=== PATIENT | male | born 1940 | race Caucasian/White ===

== ENCOUNTER → 2016-08-09 | Outpatient (CLI) | payer MEDICARE, OTHER ==
--- NOTE | 2016-08-09 09:23 | RADRPT ---
PROCEDURE: XR pelvis/right hip. CLINICAL INDICATION: Hip pain TECHNIQUE: AP pelvis/AP and lateral right hip views performed COMPARISON: No prior studies are available for comparison. FINDINGS: There is severe right hip osteoarthrosis. There is moderate left hip osteoarthrosis. This is associ ated with joint space narrowing, subchondral sclerosis , subchondral cyst formation and osteophytosi s. There is normal mineralization. No fractures or osseous lesions are identified. The soft tissu es are unremarkable. IMPRESSION: Severe right hip osteoarthrosis. Moderate left hip osteoarthrosis RPTAT: HGDB .Juliocesar Armenta MD, Date Time Electronically viewed and signed by .Juliocesar Armenta MD, on 08/09/2016 09:22 .B/
--- NOTE | 2016-08-09 09:27 | RADRPT ---
PROCEDURE: XR bilateral knees. CLINICAL INDICATION: Knee pain TECHNIQUE: AP weightbearing, PA weightbearing, lateral weightbearing and sunrise views of each kne e are available for review. COMPARISON: None available FINDINGS: Right knee: There is moderate to severe osteoarthrosis involving the right medial tibial femoral compartment and mild to moderate osteoarthrosis involving the lateral tibial femoral compartment and the patellofem oral compartment .This is associated with joint space narrowing, subchondral sclerosis and osteophyt osis. Left knee: There is severe osteoarthrosis involving the left medial tibial femoral compartment and moderate ost eoarthrosis involving the lateral tibial femoral compartment and the patellofemoral compartment. Thi s is associated with joint space narrowing, subchondral sclerosis and osteophytosis. There are multi ple calcified loose bodies in the posterior left medial knee joint. There is otherwise normal mineralization, architecture and alignment. No fractures are identified. No osseous lesions are identified. The soft tissues are unremarkable. IMPRESSION: Moderate to severe osteoarthrosis involving the right medial tibial femoral compartment and mild to moderate osteoarthrosis involving the lateral tibial femoral compartment and the patellofemoral comp artment Severe osteoarthrosis involving the left medial tibial femoral compartment and moderate osteoarthros is involving the lateral tibial femoral compartment and the patellofemoral compartment. Multiple calcified loose bodies in the left posterior medial knee joint.. RPTAT: HGDB .Juliocesar Armenta MD, Date Time Electronically viewed and signed by .Juliocesar Armenta MD, on 08/09/2016 09:27 .B/
== END | disposition home or self-care (01) ==
LOC: HKI 08:42
PROVIDERS: ATTEND Orthopaedic Surgery
DX: M16.11 Unilateral primary osteoarthritis, right hip (principal); M25.551 Pain in right hip; M17.0 Bilateral primary osteoarthritis of knee; M25.562 Pain in left knee; M25.561 Pain in right knee
CPT/HCPCS: 20610; 73502; 73564; G0463; J1030

== ENCOUNTER → 2016-09-18 | Outpatient (CLI) | payer MEDICARE, OTHER ==
[~2016-09-18] MED LIST: AMLO-147 PO; ASPI325T32 PO; BUME1TAB18 PO; CALC-762 PO; CLON1PAT2 TD; DOXA8TAB65 PO; PROLIA; RAPATHA
== END | disposition home or self-care (01) ==
LOC: HKI 09:37
PROVIDERS: ATTEND Orthopaedic Surgery
DX: Z01.818 Encounter for other preprocedural examination (principal); M16.11 Unilateral primary osteoarthritis, right hip
CPT/HCPCS: G0463

== ENCOUNTER 2016-09-24 05:36 | Inpatient (IN) | payer MEDICARE, OTHER ==
[2016-09-18 12:28] VITALS: BMI 27.3
[2016-09-23 10:00] VITALS: BMI 27.3
[2016-09-24] VITALS (22 sets, daily range): BP systolic 149–169; BP diastolic 61–83; PULSE 64–72; RESP 9–19; Ht 177.8 cm; Wt 84.4 kg
[~2016-09-24] VITALS: Ht 177.8 cm; Wt 84.4 kg
[2016-09-24] MEDS ORDERED: CALC-762 PO (05:57)
[2016-09-24] MEDS ORDERED: ASPI325T32 PO (05:57)
[2016-09-24] MEDS ORDERED: AMLO-147 PO (05:57)
[2016-09-24] MEDS ORDERED: DOXA8TAB65 PO (05:57)
[2016-09-24] MEDS ORDERED: BUME1TAB18 PO (05:57)
[2016-09-24] MEDS ORDERED: CLON1PAT2 TD (05:57)
[2016-09-24] MEDS ORDERED: SODIUM CL BACTERIOSTATIC 30 ML INJ ONE (06:54)
[2016-09-24] MEDS ORDERED: VANCOMYCIN 1 GM INJ ONE (06:54)
[2016-09-24] MEDS ORDERED: POLYMYXIN B 500000 UNIT INJ ONE (06:54)
[2016-09-24] MEDS ORDERED: BACITRACIN 50000 UNITS INJ ONE (06:56)
[2016-09-24] MEDS ORDERED: PAIN COCKTAIL-CEFUROXIME IRR ONE ×7 (07:00)
[2016-09-24] MEDS ORDERED: PREGABALIN 300 MG PO X1 PO ONE (07:00)
[2016-09-24] MEDS ORDERED: CEFAZOLIN 2GM/50 ML (PMX) 50 ML X1 BEFORE INCISION IVPB ONE (07:00)
[2016-09-24] MEDS ORDERED: TRANEXAMIC ACID 860 MG in SOD CHLORIDE 0.9% 91.4 ML IV ONE (07:00)
[2016-09-24] MEDS ORDERED: oxyCODONE (CR) 10 MG TAB [oxyCONTIN] X1 DOSE PO ONE (07:00)
[2016-09-24] MEDS ORDERED: LACTATED RINGER'S 1,000 ML IV SCH (07:00)
[2016-09-24] MEDS ORDERED: BUPIVACAINE LIPOSOME/PF 266 MG/20 ML VIAL INFIL ONE (07:00)
[2016-09-24] MEDS ORDERED: LIDOCAINE 2% (SDV) 5 ML INJ ONE (07:00)
[2016-09-24] MEDS ORDERED: TRANEXAMIC ACID 860 MG in SOD CHLORIDE 0.9% 100 ML IVPB ONE (07:00)
[2016-09-24] MEDS ORDERED: traMADOL 50 MG TAB X 1 DOSE PO ONE (07:00)
[2016-09-24] MEDS ORDERED: CELECOXIB 400 MG PO X1 DOSE PO ONE (07:00)
[2016-09-24] MEDS ORDERED: CEFAZOLIN 1 GM INJ ONE ×2 (07:13→07:14)
[2016-09-24] MEDS ORDERED: MIDAZOLAM 1 MG/ML 2 ML INJ ONE (07:13)
[2016-09-24] MEDS ORDERED: DEXAMETHASONE 4 MG/ML 1 ML INJ ONE (07:13)
[2016-09-24] MEDS ORDERED: FENTAnyl 50 MCG/ML VIAL ONE (07:13)
[2016-09-24] MEDS ORDERED: GLYCOPYRROLATE 0.4 MG INJ ONE (07:13)
[2016-09-24] MEDS ORDERED: NEOSTIGMINE 3 MG/3 ML SYRINGE ONE (07:13)
[2016-09-24] MEDS ORDERED: PROPOFOL 0 ML ONE (07:13)
[2016-09-24] MEDS ORDERED: ONDANSETRON 4 MG INJ ONE (07:13)
[2016-09-24] MEDS ORDERED: ROCURONIUM 50 MG INJ ONE (07:13)
--- NOTE | 2016-09-24 07:13 | HPN ---
Date/Time of Note Date/Time of Note DATE: 09/24/16 TIME: 07:13 Interval H&P Admission Note Pt. seen H&P reviewed: No system changes No change from H&P on 09/10/16 by JUNG Navarrete MD Sep 24, 2016 07:13
[2016-09-24] MEDS ORDERED: PROPOFOL 100 ML ONE (07:14)
[2016-09-24] MEDS ORDERED: PROLIA (07:17)
[2016-09-24] MEDS ORDERED: RAPATHA (07:17)
[2016-09-24] MEDS ORDERED: MIDAZOLAM 1 MG/ML 2 ML INJ IV PRN (08:30)
[2016-09-24] MEDS ORDERED: HYDROmorphONE (0.2 MG/ML) 10ML SYG IV PRN ×3 (08:30)
[2016-09-24] MEDS ORDERED: LABETALOL HCL 20MG INJ IV PRN (08:30)
[2016-09-24] MEDS ORDERED: ONDANSETRON 4 MG INJ IV PRN ×2 (08:30→10:00)
[2016-09-24] MEDS ORDERED: MEPERIDINE 25 MG INJ IV PRN (08:30)
[2016-09-24] MEDS ORDERED: FENTAnyl 50 MCG/ML VIAL IV PRN ×3 (08:30)
[2016-09-24] MEDS ORDERED: DIPHENHYDRAMINE 50 MG INJ IV PRN (08:30)
[2016-09-24] MEDS ORDERED: hydrALAzine 20 MG INJ IV PRN (08:30)
[2016-09-24] MEDS ORDERED: TRIMETHOBENZAMIDE 100 MG/ML VIAL IM PRN (08:30)
[2016-09-24] MEDS ORDERED: EPHEDrine SULFATE 50 MG/5 ML SYG IV PRN (08:30)
--- NOTE | 2016-09-24 09:55 | OPR ---
Date/Time of Note Date/Time of Note DATE: 09/24/16 TIME: 09:49 Operative Report Free Text/Dictation Dictation [id number] Procedure Date: Sep 24, 2016 Preoperative Diagnosis Right Hip OA Postoperative Diagnosis Same Operation Performed Right Anterior SARATH Surgeon: JUNG CLAYTON MD research assistant: OBI BUTT PA-C Anesthesia: spinal Anesthesiologist: You Navarro M.D. Estimated Blood Loss: 250 - 300 ml's Specimens Femoral Head Tubes/Drains Hemovac x1 Complications: None Pt Condition Post Procedure: stable Disposition: PACU JUNG CLAYTON MD Sep 24, 2016 09:54
--- NOTE | 2016-09-24 09:56 | PN ---
Date/Time of Note Date/Time of Note DATE: 09/24/16 TIME: 09:54 Assessment/Plan Lines/Catheters IV Catheter Type (from Nrsg): Peripheral IV Assessment/Plan Assessment/Plan Stable in PACU, s/p right anterior SARATH -continue abx until drains removed -pain meds as needed -ASA/SCDs for DVT prophylaxis -OOB with PT -monitor drain -check AM labs -d/c gregory in AM XR of the right hip is pending at this time Subjective 24 Hr Interval Summary Stable in PACU. Drowsy from anesthesia. Denies any pain. Moving all extremities. Exam/Review of Systems Vital Signs Vitals Vital Signs Date Time Temp Pulse Resp B/P Pulse Ox O2 Delivery O2 Flow Rate FiO2 09/24/16 09:50 98.8 09/24/16 07:49 65 16 161/83 97 Exam Free Text/Dictation Hemovac: minimal Dressing dry Incision clean, dry, and intact without redness or drainage 5/5 Quadriceps, Tibialis Anterior, EHL, Gastroc, Soleus, Peroneals Normal sensation Palpable DT/PT, CR <2 sec No distal edema[ OBI BUTT PA-C Sep 24, 2016 09:56
[2016-09-24] MEDS ORDERED: BISACODYL 10 MG SUPP PR PRN (10:00)
[2016-09-24] MEDS ORDERED: DIPHENHYDRAMINE 25 MG CAP PO PRN (10:00)
[2016-09-24] MEDS ORDERED: NA PHOSPHATE/BIPHOS 133 ML ENEMA PR PRN (10:00)
[2016-09-24] MEDS ORDERED: HYDROmorphONE 1 MG/ML SYG IV PRN (10:00)
[2016-09-24] MEDS ORDERED: ASPIRIN (EC) 325 MG TAB PO ONE (10:00)
[2016-09-24] MEDS ORDERED: oxyCODONE 5 MG TAB PO PRN ×2 (10:00)
[2016-09-24] MEDS ORDERED: NACL 0.9% 3 ML SYG IV SCH (10:00)
[2016-09-24] MEDS ORDERED: MAGNESIUM HYDROXIDE 30ML CUP PO PRN (10:00)
[2016-09-24 10:18] LABS: HEMOGLOBIN 11.5 g/dl (14.0-18.0)
[2016-09-24 10:27] LABS: CALCIUM 8.1 mg/dl (8.4-10.2); CREATININE 1.74 mg/dl (0.61-1.24)
[2016-09-24] MEDS: CEFAZOLIN 2 GM/50 ML (PMX) 50 ML IVPB SCH ×2 (11:00→18:01)
[2016-09-24] MEDS ORDERED: EXPAREL NOTE (BUPIVICAINE LIPOSOMAL) XX SCH (11:00)
--- NOTE | 2016-09-24 11:15 | OPR ---
DATE OF OPERATION: 09/24/2016 PREOPERATIVE DIAGNOSIS: Right hip osteoarthritis. POSTOPERATIVE DIAGNOSIS: Right hip osteoarthritis. OPERATION PERFORMED: Right anterior total hip arthroplasty. SURGEON: Jung Mendoza MD POLYTECHNIC REGISTRAR: Anjel VERGARA COMPONENTS USED: DePuy size 56 mm Gription [place] cup, 56/36 neutral Altrex polyethylene liner, size 8 standard Actis stem, 36+5 ceramic head. ANESTHESIA: Spinal plus general endotracheal intubation plus periarticular injection. ANESTHESIOLOGIST: You Navarro MD ESTIMATED BLOOD LOSS: 300 mL IV FLUIDS: 2200 mL crystalloid. SPECIMENS: Femoral head. DRAINS: Hemovac x1. COMPLICATIONS: None. DISPOSITION: The patient tolerated the procedure well and was taken to the recovery room in stable. INDICATIONS: The patient is a 76-year-old gentleman who has had progressive worsening pain in the right hip with radiographic evidence of severe osteoarthritis. He has failed nonsurgical means of treatment to control his pain including activity modifications, pain medications and ambulatory assist devices. Despite these measures, he has had worsening pain and I felt he would benefit from a total hip arthroplasty through an anterior approach. The risks, benefits, and alternatives of the procedure were explained in detail to the patient. I explained the risks of the surgery to include, but not be limited to: bleeding and possible need for blood transfusion; infection; pain; stiffness; neurovascular injury with possible numbness, weakness, and/or paralysis anywhere from the hip down to the toes; fracture; instability; dislocation; leg length inequality; wear and/or loosening of the prosthesis and possible need for future revision; blood clots; pulmonary embolism; and anesthetic complications such as heart attack, stroke, GI bleed, pneumonia, and/ or . Ample time was allowed for the patient to ask questions, all of which were addressed and answered. The patient understood the risks involved and wished to proceed. Informed consent was signed prior to the procedure. PROCEDURE: The patient's right hip was initialed with a marking pen in the preoperative area to identify the correct operative site. The patient was brought to the operating room and transferred from the the orthopedic specialty hospital to the [facility] where a spinal anesthetic was administered. The patient was then anesthetized and intubated. A Buckner catheter was placed. Both feet were placed into well padded boots which were then placed into the leg holders of the traction booms. A timeout was performed to confirm that the right side was the correct operative site. The patient was given 2 g of intravenous Ancef within one hour prior to the procedure. The operative hip was prepped and draped in the usual sterile fashion. A 10 cm oblique incision was made over the anterior aspect of the hip and carried down through subcutaneous tissue and fat with sharp dissection. The tensor fascia megan was incised along the length of the wound. The tensor fascia muscle was retracted laterally and the sartorius medially. The anterior circumflex vessels were identified and tied off with 2-0 silk suture and coagulated with the Tissue Link triage nurse. The rectus femoris was elevated off the anterior capsule and an anterior capsulectomy performed. A femoral neck osteotomy was made and the head removed from the acetabulum. The acetabulum was denuded of cartilage circumferentially, as was the femoral head. Retractors were placed around the acetabulum. The remnants of the labrum and ligamentum teres were excised. I reamed the acetabulum to the medial wall and then went into an anatomic position and increased the reamer size in 2 mm increments until I got a good bite and was down to bleeding subchondral bone. The [place] cup was opened and impacted into the acetabulum and sat flush circumferentially, getting a good bite. C-arm imaging showed it had about 40 to 45 degrees of abduction and 20 degrees of anteversion. The real liner was opened and impacted into the acetabulum and sat flush circumferentially. Attention was turned towards the femur. The operative leg was carefully lowered to the floor with the leg adducted. The foot was then externally rotated to approximately 110 degrees. A posteromedial release was performed to optimize exposure. The femoral hook was placed underneath the proximal femur and the hydraulic lift was then used to elevate the femur up out of the wound. The cookAegis cutter osteotome was used to remove the remaining overhanging greater trochanter. The femur was then broached, going up in one size increments until it sat flush with the neck cut and a stable fit was achieved. The trial neck and head were assembled and reduced into the acetabulum. Fluoroscopic imaging showed the components to be in good position and the leg lengths and offsets to be equal. At this point, the trial was dislocated and the trial broach removed. The canal was irrigated and dried. The real stem was opened and impacted into the femur. The trunnion was irrigated and dried, and the real femoral head was impacted onto the trunnion, and reduced into the acetabulum. The soft tissues were infiltrated with a mixture of 150 mg of 0.5% Bupivacaine, 8 mg of Duramorph, 300 mcg of epinephrine, 30 mg of Toradol, 100 mcg of clonidine, 750 mg of cefuroxime and 86 mL of normal saline, followed by an injection of 266 mg of liposomal Bupivacaine. At this point the hip was irrigated with a mixture of Betadine/saline and then antibiotic saline with pulsatile lavage. A Hemovac drain was placed in the deep portion of the wound and brought out the anterolateral thigh. There was good hemostasis. The tensor fascia megan was repaired with a running #1 Vicryl. The deep fat layer was irrigated and closed with 2-0 Stratafix and the subcutaneous layer closed with 3 -0 Vicryl and the skin was closed with audelia and then sealed with Dermabond. The drain was secured with 3-0 nylon. The sponge and needle counts were correct at the end of the case. The wound was covered with an occlusive dressing. The patient was awakened, extubated, and taken to the recovery room in stable condition. Dictated By: JUNG BULLOCK/WALTER Conf#: [id number] DID#: [id number] MTDD
[2016-09-24] MEDS: traMADol 50 MG TAB PO SCH ×2 (11:49→18:01)
[2016-09-24] MEDS: ACETAMINOPHEN 1000MG/100ML IV 100 ML IVPB SCH ×3 (11:54→23:47)
[2016-09-24] MEDS: LACTATED RINGER'S 1,000 ML IV SCH ×3 (11:54→22:24)
--- NOTE | 2016-09-24 12:27 | RADRPT ---
PROCEDURE: XR Hip. CLINICAL INDICATION: Post op in PACU TECHNIQUE: AP and frog lateral views of the right hip were performed. COMPARISON: AP pelvis 08/09/2016. FINDINGS: There are skin audelia over the lateral aspect of the right hip with subcutaneous emphysema present for recent total right hip arthroplasty. The femoral and acetabular components are anatomically ali gned with the drainage catheter identified lateral to the acetabular component of the right hip pros thesis. IMPRESSION: 1. Status post total right hip arthroplasty with a drainage catheter and subcutaneous emphysema not ed in the area related to recent surgery. The components are anatomically aligned with no evidence of loosening. RPTAT:AAJJ Physician Tavon Date Time Electronically viewed and signed by Physician Tavon on 09/24/2016 12:27 NATHAN/
--- NOTE | 2016-09-24 12:29 | RADRPT ---
PROCEDURE: AP postop view of the pelvis. CLINICAL INDICATION: Status post right hip arthroplasty. TECHNIQUE: An AP view of the pelvis was performed. COMPARISON: AP pelvis 08/09/2016. FINDINGS: A right hip arthroplasty was performed. The components are anatomically aligned with no evidence of loosening. There is a drainage catheter projecting over the proximal right hip with subcutaneous i n the same and skin audelia present from recent surgery. There is a drainage catheter in the urethr a and urinary bladder. The left femur is intact. The innominate bone is intact. There is mild narr owing and degenerative change involving the left acetabulum. IMPRESSION: 1. Status post total right hip arthroplasty with subcutaneous emphysema no drainage catheter noted in place related to recent surgery. 2. Early osteoarthritis of the left hip. RPTAT:AAJJ Physician Tavon Date Time Electronically viewed and signed by Physician Tavon on 09/24/2016 12:29 NATHAN/
--- NOTE | 2016-09-24 12:57 | RADRPT ---
PROCEDURE: Intraoperative imaging of the right hip with fluoroscopy. CLINICAL INDICATION: Right hip pain. Intraoperative. TECHNIQUE: 18 images of the right hip were obtained in the operating room with an image intensifie r. No radiologist was in attendance. 0.6 of fluoroscopy time was used. COMPARISON: No prior study is available for comparison. FINDINGS: Images demonstrate placement of a total right hip arthroplasty. IMPRESSION: 1. Satisfactory intraoperative imaging of the right hip. RPTAT: QQ .Jaron Pina MD, MD Date Time Electronically viewed and signed by .Jaron Pina MD, MD on 09/24/2016 12:57 .R/
[2016-09-24] MEDS ORDERED: TRANEXAMIC ACID 840 MG in SOD CHLORIDE 0.9% 100 ML IVPB ONE ×2 (13:00→16:00)
--- NOTE | 2016-09-24 13:40 | CONS ---
DATE OF ADMISSION: 09/24/2016 DATE OF CONSULTATION: 09/24/2016 TYPE OF CONSULTATION: Postop Medical Thank you very much for allowing me to evaluate the above patient, a 76-year-old male, who just unde rwent right hip replacement. HISTORICAL EVENTS: As you well know, this patient has had progressive disabling pain involving his right hip, and elected to proceed with surgery today. On the orthopedic floor, he is comfortable wi thout cough, wheezing, shortness of breath, abdominal pain, has mild nausea without vomiting. Buckner catheter is in place and family is at the bedside. PAST MEDICAL HISTORY: Includes: 1. Benign prostatic hypertrophy without obstruction. 2. History of carcinoma in situ of the bladder. 3. History of carcinoma in situ of the prostate. 4. Known coronary artery disease status post CABG, as well as stent placement. 5. History of osteoporosis. 6. Hypertension. 7. History of perforated gallbladder, requiring prolonged hospitalization, renal failure, the need for dialysis related to sepsis. 8. Hyperlipidemia. PRESENT MEDICATIONS: 1. B complex 1 per day. 2. Bumetanide 2 mg per day. 3. Cardura 8 mg per day. 4. Catapres TTS 0.2. 5. Glucosamine. 6. Ecotrin. 7. Folic acid 1 mg per day. 8. Norvasc. 9. Prolia. 10. Repatha. ALLERGIES: TO BE REVIEWED. FAMILY HISTORY: Not reviewed. PHYSICAL EXAMINATION: GENERAL: [place] male in no acute distress. VITAL SIGNS: Blood pressure 122/80, pulse 70, respirations are 20. He was afebrile. EYES: Extraocular muscles were full. NOSE, MOUTH, AND THROAT: Normal. NECK: Supple. There was no jugular venous distention, thyroid enlargement or adenopathy. Carotids 2+. LUNGS: Clear. HEART: Rhythm regular, no murmur. No third or fourth sound. ABDOMEN: Nontender. Liver and spleen were not palpable. No masses or tenderness were noted. EXTREMITIES: No edema. Calves nontender. NEUROLOGIC: No lateralizing motor weakness. IMPRESSION: 1. Status post right hip replacement. 2. History of hypertension. We will continue blood pressure meds and monitor blood pressure throug hout. 3. Known coronary artery disease, asymptomatic, but will be alert to signs and symptoms of coronary insufficiency. 4. We will evaluate daily for signs and symptoms of thromboembolic disease. Dictated By: LINA DAUGHERTY MD MR/NTS Conf#: [id number] DID#: [id number] CC: JUNG CLAYTON MD;*EndCC*
[2016-09-24] MEDS ORDERED: CLONIDINE 0.1 MG/24 HR PATCH TRANSDERM SCH (14:00)
[2016-09-24 14:47] LABS: ADD UMIC YES; URINE BILIRUBIN (Dip) NEGATIVE (NEGATIVE); URINE BLOOD (Dip) TRACE (NEGATIVE); URINE COLOR LT. YELLOW (YELLOW); URINE GLUCOSE (Dip) NEGATIVE (NEGATIVE); URINE KETONES (Dip) NEGATIVE (NEGATIVE); URINE LEUKOCYTE ESTERASE (Dip) NEGATIVE (NEGATIVE); URINE NITRITE (Dip) NEGATIVE (NEGATIVE); URINE TOTAL PROTEIN (Dip) TRACE (NEGATIVE); URINE UROBILINOGEN (Dip) 0.2 E.U./dL (0.1-1.0)
[2016-09-24 15:39] LABS: URINE RBCS 0-2 /HPF (0)
[2016-09-24] MEDS: PANTOPRAZOLE (EC) 40 MG TAB PO SCH (18:01)
[2016-09-24] MEDS ORDERED: ONDANSETRON 4 MG INJ IV STA (18:27)
[2016-09-24] MEDS: DOXAZOSIN 4 MG TAB PO SCH (21:05)
[2016-09-24] MEDS: DOCUSATE SODIUM 100 MG CAP PO SCH (21:05)
[2016-09-24] MEDS: PREGABALIN 50 MG CAP PO SCH (21:05)
[2016-09-25] VITALS: BP 168/77; RESP 18
[2016-09-25] MEDS: CEFAZOLIN 2 GM/50 ML (PMX) 50 ML IVPB SCH (01:28)
[2016-09-25 04:00] VITALS: BP 172/76; RESP 18
[2016-09-25] MEDS: AMLODIPINE 10 MG TAB PO SCH (04:52)
[2016-09-25 05:31] LABS: HEMATOCRIT 36.1 % (42.0-52.0); HEMOGLOBIN 11.2 g/dl (14.0-18.0)
[2016-09-25 05:36] LABS: POTASSIUM 4.3 mmol/L (3.5-5.1)
[2016-09-25 05:38] LABS: CREATININE 1.54 mg/dl (0.61-1.24)
[2016-09-25 05:39] LABS: CALCIUM 7.7 mg/dl (8.4-10.2)
[2016-09-25] MEDS: PANTOPRAZOLE (EC) 40 MG TAB PO SCH ×2 (05:57→18:09)
[2016-09-25] MEDS: traMADol 50 MG TAB PO SCH ×5 (05:58→23:38)
[2016-09-25] MEDS: ACETAMINOPHEN 1000MG/100ML IV 100 ML IVPB SCH (05:58)
[2016-09-25 06:35] VITALS: BP 151/72; RESP 18
[2016-09-25 07:00] VITALS: BP 143/67; RESP 20
[2016-09-25] MEDS: LACTATED RINGER'S 1,000 ML IV SCH ×2 (07:04→16:05)
[2016-09-25 07:25] LABS: ADD UMIC YES; URINE BILIRUBIN (Dip) NEGATIVE (NEGATIVE); URINE BLOOD (Dip) TRACE (NEGATIVE); URINE COLOR LT. YELLOW (YELLOW); URINE GLUCOSE (Dip) NEGATIVE (NEGATIVE); URINE KETONES (Dip) NEGATIVE (NEGATIVE); URINE LEUKOCYTE ESTERASE (Dip) NEGATIVE (NEGATIVE); URINE NITRITE (Dip) NEGATIVE (NEGATIVE); URINE TOTAL PROTEIN (Dip) NEGATIVE (NEGATIVE); URINE UROBILINOGEN (Dip) 0.2 E.U./dL (0.1-1.0)
[2016-09-25 07:42] LABS: BACTERIA,URINE RARE; URINE RBCS 0-2 /HPF (0)
--- NOTE | 2016-09-25 08:42 | PN ---
Date/Time of Note Date/Time of Note DATE: 09/25/16 TIME: 08:41 Assessment/Plan Lines/Catheters IV Catheter Type (from Nrsg): Peripheral IV Buckner in Place (from Nrsg): No Assessment/Plan Assessment/Plan Stable POD #1, s/p right anterior SARATH -d/c abx -pain meds as needed -ASA/SCDs for DVT prophylaxis -OOB with PT -check AM labs -drain removed -d/c planning. Will plan to go home upon discharge. Subjective 24 Hr Interval Summary No acute overnight events. Denies any pain. Did not start PT yet. VSS, afebrile. Would like to go home upon discharge. Exam/Review of Systems Vital Signs Vitals Vital Signs Date Time Temp Pulse Resp B/P Pulse Ox O2 Delivery O2 Flow Rate FiO2 09/25/16 07:00 97.4 65 20 143/67 96 09/24/16 14:00 Nasal Cannula 2.0 Intake and Output 09/24/16 09/24/16 09/25/16 15:00 23:00 07:00 Intake Total 2617.0 ml 1648.4 ml 1575 ml Output Total 500 ml 290 ml 1650 ml Balance 2117.0 ml 1358.4 ml -75 ml Exam Free Text/Dictation Hemovac: 40cc Dressing dry Incision clean, dry, and intact without redness or drainage 5/5 Quadriceps, Tibialis Anterior, EHL, Gastroc, Soleus, Peroneals Normal sensation Palpable DT/PT, CR <2 sec No distal edema Results Result Diagram: 09/25/16 0425 09/25/16 0425 OBI BUTT PA-C Sep 25, 2016 08:42
[2016-09-25] MEDS: PREGABALIN 50 MG CAP PO SCH ×2 (08:53→20:09)
[2016-09-25] MEDS: DOCUSATE SODIUM 100 MG CAP PO SCH ×2 (08:53→20:10)
[2016-09-25] MEDS: ASPIRIN (EC) 325 MG TAB PO SCH ×2 (08:53→20:09)
--- NOTE | 2016-09-25 11:26 | CONS ---
Date/Time of Note Date/Time of Note DATE: 09/25/16 TIME: 11:21 Assessment/Plan Assessment/Plan Chief Complaint/Hosp Course 1. he is 1 day post op a R SARATH , he is doing well 2. continue current medication and PT . 3. CKD , renal function is stable . 4. CAD , asymptomatic Problems: Consultation Date/Type/Reason Admit Date/Time Sep 24, 2016 at 05:36 Initial Consult Date 24 HR Interval Summary Free Text/Dictation He is 1 day post op a R SARATH . He is feeling well . Constitutional: improved, no complaints Exam/Review of Systems Vital Signs Vitals Vital Signs Date Time Temp Pulse Resp B/P Pulse Ox O2 Delivery O2 Flow Rate FiO2 09/25/16 08:00 Nasal Cannula 09/25/16 07:00 97.4 65 20 143/67 96 09/24/16 14:00 2.0 Intake and Output 09/24/16 09/24/16 09/25/16 15:00 23:00 07:00 Intake Total 2617.0 ml 1648.4 ml 1575 ml Output Total 500 ml 290 ml 1650 ml Balance 2117.0 ml 1358.4 ml -75 ml Exam Constitutional: alert, oriented, well developed Respiratory: clear to auscultation, normal air movement Cardiovascular: regular rate and rhythm Gastrointestinal: soft Extremities: edema Results Result Diagram: 09/25/16 0425 09/25/16 0425 Results 24 hrs Laboratory Tests Test 09/24/16 14:30 09/25/16 04:25 09/25/16 05:00 Urine Color LT. YELLOW LT. YELLOW Urine Clarity CLEAR CLEAR Urine pH 5.5 6.5 Urine Specific [place] 1.020 <=1.005 L Urine Ketones NEGATIVE NEGATIVE Urine Nitrite NEGATIVE NEGATIVE Urine Bilirubin NEGATIVE NEGATIVE Urine Urobilinogen 0.2 E.U./dL 0.2 E.U./dL Urine Leukocyte Esterase NEGATIVE NEGATIVE Urine Microscopic RBC 0-2 0-2 Urine Microscopic WBC 0-2 2-5 Urine Hemoglobin TRACE TRACE Urine Glucose NEGATIVE NEGATIVE Urine Total Protein TRACE NEGATIVE Hemoglobin 11.2 L Hematocrit 36.1 L Sodium Level 139 Potassium Level 4.3 Chloride Level 103 Carbon Dioxide Level 27 Anion Gap 13 Blood Urea Nitrogen 30 H Creatinine 1.54 H Glucose Level 137 Calcium Level 7.7 L Urine Epithelial Cells OCCASIONAL Urine Bacteria RARE Medications Medications Current Medications Miscellaneous Information 1 ea NOTE XX ; Start 09/24/16 at 11:00; Stop 09/28/16 at 10:59 Amlodipine Besylate (Norvasc) 10 mg DAILY PO Last administered on 09/25/16 04: 52; Admin Dose 10 MG; Start 09/25/16 at 04:45 Doxazosin Mesylate 8 mg 8 mg HS PO Last administered on 09/24/16 21:05; Admin Dose 8 MG; Start 09/24/16 at 21:00 Lactated Ringer's 1,000 ml @ 125 mls/hr Q8H IV Last administered on 09/25/16 07:04; Admin Dose 125 MLS/HR; Start 09/24/16 at 09:40 Acetaminophen (Ofirmev 1000mg/ 100ml Iv) 100 ml @ 400 mls/hr Q6 IVPB Last administered on 09/25/16 05:58; Admin Dose 400 MLS/HR; Start 09/24/16 at 12:00 ; Stop 09/25/16 at 11:59 Tramadol HCl (Ultram) 50 mg Q6 PO Last administered on 09/25/16 05:58; Admin Dose 50 MG; Start 09/24/16 at 12:00; Stop 09/27/16 at 11:59 Oxycodone HCl (Roxicodone) 5 mg Q4H PRN PO PAIN LEVEL 1-3; Start 09/24/16 at 10 :00 Oxycodone HCl (Roxicodone) 10 mg Q4H PRN PO PAIN LEVEL 4-7; Start 09/24/16 at 10:00 Hydromorphone HCl (Dilaudid) 1 mg Q3H PRN IV PAIN LEVEL 8-10; Start 09/24/16 at 10:00 Ondansetron HCl (Zofran Inj) 4 mg Q6H PRN IV NAUSEA AND/OR VOMITING Last administered on 09/24/16 13:12; Admin Dose 4 MG; Start 09/24/16 at 10:00 Bisacodyl (Dulcolax Supp) 10 mg Q12H PRN [place] CONSTIPATION; Start 09/24/16 at 10: 00 Magnesium Hydroxide (Milk Of Mag) 30 ml BID PRN PO CONSTIPATION; Start at 10:00 Sodium Biphosphate/ Sodium Phosphate (Fleet Enema) 133 ml DAILY PRN [place] CONSTIPATION; Start 09/24/16 at 10:00 Docusate Sodium (Colace) 100 mg BID PO Last administered on 09/25/16 08:53; Admin Dose 100 MG; Start 09/24/16 at 21:00 Diphenhydramine HCl (Benadryl) 25 mg Q6H PRN PO PRURITUS; Start 09/24/16 at 10: 00 Aspirin (Ecotrin) 325 mg BID PO Last administered on 09/25/16 08:53; Admin Dose 325 MG; Start 09/25/16 at 09:00 Pregabalin (Lyrica) 50 mg BID PO Last administered on 09/25/16 08:53; Admin Dose 50 MG; Start 09/24/16 at 21:00 Pantoprazole (Protonix Tab) 40 mg BID@,18 PO Last administered on 09/25/16 05:57; Admin Dose 40 MG; Start 09/24/16 at 18:00 Clonidine HCl (Catapres-Tts 1 Patch) 1 patch Q7D TRANSDERM ; Start 09/24/16 at 14:00 AUBREY HARTMAN MD Sep 25, 2016 11:26
[2016-09-25] MEDS: DOXAZOSIN 4 MG TAB PO SCH (20:10)
[2016-09-25 20:14] VITALS: BP 180/78; RESP 20
[2016-09-25 23:59] VITALS: BP 140/69; PULSE 66
[2016-09-26] MEDS: LACTATED RINGER'S 1,000 ML IV SCH ×2 (00:56→09:40)
[2016-09-26 05:19] LABS: HEMATOCRIT 34.3 % (42.0-52.0); HEMOGLOBIN 10.6 g/dl (14.0-18.0)
[2016-09-26 05:28] LABS: CREATININE 1.81 mg/dl (0.61-1.24)
[2016-09-26 05:29] LABS: CALCIUM 7.6 mg/dl (8.4-10.2)
[2016-09-26] MEDS: PANTOPRAZOLE (EC) 40 MG TAB PO SCH (05:53)
[2016-09-26] MEDS: traMADol 50 MG TAB PO SCH ×2 (05:54→12:00)
[2016-09-26 07:49] VITALS: BP 174/77; RESP 18
[2016-09-26] MEDS: ASPIRIN (EC) 325 MG TAB PO SCH (09:15)
[2016-09-26] MEDS: DOCUSATE SODIUM 100 MG CAP PO SCH (09:15)
[2016-09-26] MEDS: PREGABALIN 50 MG CAP PO SCH (09:16)
[2016-09-26] MEDS: AMLODIPINE 10 MG TAB PO SCH (09:16)
--- NOTE | 2016-09-26 09:58 | PDOCDIS ---
Discharge Instructions DIAGNOSIS Discharge Diagnosis: s/p right anterior SARATH CONDITION Patient Condition: Good HOME CARE INSTRUCTIONS: Diet Instructions: RegularSpecial Diet: CLEAR LIQUID ACTIVITY: Activity Restrictions: Slowly Increase Activity Rest between Activity Avoid heavy lifting Do not operate Machinery Do not operate Power Tool Avoid Heavy Housework Keep Limb Elevated Bathing Restrictions: Shower FOLLOW UP/APPOINTMENTS Appointments follow up in the office on 10/04/16 OTHER ORDERS: Other Orders: S/P Anterior SARATH Physical Therapy: Three times per week at home x 2 weeks Daily in Rehab/SNF WB STATUS: WBAT Strengthening exercises for both upper and un-operated lower extremities. 1. Gait training with front wheeled walker 2. Wide base gait, no pivot turns. 3. Abductor strengthening. 4. Quadriceps and hamstring strengthening. 5. May switch to cane in contra lateral hand 6 weeks after surgery. 6. Physical Therapy can open case if nursing is not available. 7. Ice Packs while at rest to surgical wound for 20 minutes, 3 times/day. 8. Patient requires mobile SCDs to reduce risk of developing DVT following SARATH. Patient will use the mobile SCDs for 30 days postoperatively. Hip Precautions: No posterior hip precautions. Bathing assistance by home health aide twice weekly if Medicare patient. Occupational Therapy: Evaluation for assistive devices and ADL training. Wound Care: Keep incision dry & covered with Tegaderm until first visit with Dr. Mendoza Anticoagulation Orders: Enteric Coated Aspirin 325 mg po bid x 6 weeks from date of surgery Follow-up:Call for an appointment with Dr. Mendoza in 1 week after discharged from hospital at DME Orders: BOUCHRA, 3-in-1 Commode, Mobile SCDs OBI BUTT PA-C Sep 26, 2016 09:58
[2016-09-26] MEDS ORDERED: HYDR-906 PO (09:59)
[2016-09-26] MEDS ORDERED: TRAM50TA2 PO (09:59)
[2016-09-26] MEDS ORDERED: ASPI325T32 PO (09:59)
[2016-09-26] MEDS ORDERED: PANT40TA4 PO (09:59)
--- NOTE | 2016-09-26 10:30 | PN ---
Date/Time of Note Date/Time of Note DATE: 09/26/16 TIME: 10:28 Assessment/Plan Lines/Catheters IV Catheter Type (from Nrsg): Saline Lock Buckner in Place (from Nrsg): No Assessment/Plan Assessment/Plan Stable POD #2, s/p right anterior SARATH -pain meds as needed -dressing changed -OOB with PT -ASA/SCDs -d/c home today -follow up in the office in 1 week Subjective 24 Hr Interval Summary No acute overnight events. Denies any pain but complaining of some soreness. VSS , afebrile. Would like to go home today. Exam/Review of Systems Vital Signs Vitals Vital Signs Date Time Temp Pulse Resp B/P Pulse Ox O2 Delivery O2 Flow Rate FiO2 09/26/16 07:49 98.7 65 18 174/77 92 09/25/16 08:00 Nasal Cannula 09/24/16 14:00 2.0 Intake and Output 09/25/16 09/25/16 09/26/16 15:00 23:00 07:00 Intake Total 125 ml 2555 ml Output Total 600 ml Balance 125 ml 1955 ml Exam Free Text/Dictation Dressing dry Incision clean, dry, and intact without redness or drainage 5/5 Quadriceps, Tibialis Anterior, EHL, Gastroc, Soleus, Peroneals Normal sensation Palpable DT/PT, CR <2 sec No distal edema Results Result Diagram: 09/26/16 0420 09/26/16419 OBI BUTT PA-C Sep 26, 2016 10:29
--- NOTE | 2016-09-27 06:18 | DS ---
DATE OF ADMISSION: 09/24/2016 DATE OF DISCHARGE: 09/26/2016 CONDITION ON DISCHARGE: Stable. ADMITTING DIAGNOSIS: Right hip osteoarthritis. DISCHARGE DIAGNOSIS: Status post right anterior total hip arthroplasty. PROCEDURE PERFORMED: Right anterior total hip arthroplasty. HOSPITAL COURSE: This is a 76-year-old male who was seen in the clinic initially complaining of rig ht hip pain. X-rays were obtained and demonstrated advanced osteoarthritis of the right hip and it was thought he would benefit from a right anterior total hip arthroplasty. On 09/24/2016 the heather luna was admitted and taken to the operating room, where he underwent a right anterior total hip arthro plasty. There were no intraoperative complications. The patient tolerated the procedure well. He was taken to the recovery room in stable condition. Pain was well controlled with oral pain medicat ion. He was started on aspirin and SCDs for DVT prophylaxis. He remained hemodynamically stable an d neurovascularly intact throughout his hospital stay. He began physical therapy on postoperative d ay 1 and he was deemed stable for discharge on postoperative day 2. Prior to discharge the incision was inspected and noted to be clean, dry and intact. Dressing changes were done prior to the ko nt going home. LABORATORY ANALYSIS: Hemoglobin 10.6, hematocrit 34.3. Chemistry panel demonstrated sodium 139, po tassium 4.0, BUN of 30, creatinine 1.81, a glucose of 106, which is consistent with the patient's pr ior history of CKD. DISCHARGE MEDICATIONS: 1. Dahinda 5/325 mg. 2. Tramadol 50 mg. 3. Aspirin 325 mg. 4. Protonix 40 mg. 5. Additionally, the patient is to resume all of his normal home medications. DISCHARGE INSTRUCTIONS: The patient will be discharged home in stable condition. He is to resume a normal diet. Activity includes weightbearing as tolerated on the right lower extremity. He is to b egin physical therapy with home health. He will be discharged home with the medications noted above and is to resume all of his normal home medications. The patient is to call the office or go to [facility] for any concerns including increased redness, swelling, drainage, fever or any conc erns regarding the operation or site of incision. FOLLOWUP: The patient will need to follow up in the office on 10/04/2016. Dictated By: OBI SHETTY/WALTER Conf#: [id number] DID#: [id number]
== END 2016-09-26 14:05 | disposition home health service (06) | DRG 470 ==
LOC: REC 05:36 → MS1 11:15
PROVIDERS: ADMIT Orthopaedic Surgery; ATTEND Orthopaedic Surgery
PROC: 0SR904A Replacement of Right Hip Joint with Ceramic on Polyethylene Synthetic Substitute, Uncemented, Open Approach (ICD-10-PCS; principal; 2016-09-24 07:00)
DX: M16.11 Unilateral primary osteoarthritis, right hip (principal); I12.9 Hypertensive chronic kidney disease with stage 1 through stage 4 chronic kidney disease, or unspecified chronic kidney disease; I25.10 Atherosclerotic heart disease of native coronary artery without angina pectoris; Z95.1 Presence of aortocoronary bypass graft; E78.5 Hyperlipidemia, unspecified; N18.9 Chronic kidney disease, unspecified; N40.0 Benign prostatic hyperplasia without lower urinary tract symptoms; Z95.5 Presence of coronary angioplasty implant and graft
CPT/HCPCS: 72170; 73500; 73530; 80048; 81001; 81003; 85014; 85018; 86850; 86900; 86901; 86920; 87081; 87086; 88304; 88311; 97116; 97163; 97166; 97530; C1776; C9290; J0131; J0171; J0690; J0697; J0735; J1100; J1885; J2250; J2274; J2405; J2710; J3010; J3370; J7120

== ENCOUNTER → 2016-10-04 | Outpatient (CLI) | payer MEDICARE, OTHER ==
[~2016-10-04] MED LIST changes: +HYDR-906 PO; +PANT40TA4 PO; +TRAM50TA2 PO
--- NOTE | 2016-10-04 10:39 | HKNOTE ---
DATE OF SERVICE: 10/04/2016 INTERVAL HISTORY: The patient presents today for his first postoperative evaluation. He is 10 days status post right anterior total hip arthroplasty. He is doing well overall. He denies any signif icant pain and is progressing well with physical therapy. They feel he is ready to transition from a front-wheeled walker to a cane. He denies any fevers or chills. There has been some confusion ab out his aspirin and it appears the patient has only been taking the aspirin once a day. He denies a ny calf pain or tenderness. He denies any shortness of breath. He presents today for his first pos toperative evaluation. PHYSICAL EXAMINATION: On exam today he is alert and oriented x4 and in no acute distress. He is wa lking with a front-wheeled walker. Exam of the incision demonstrates it to be clean, dry and intact . [place] are in place. There is some mild dermatitis secondary to the Tegaderm dressing, but no e rythema, warmth, pus or drainage noted. There is no significant soft tissue swelling. Homans sign is negative. Compartments are soft. He is neurovascularly intact distally. He does have 2+ bilate ral dependent edema, which is chronic. IMAGING: X-rays of the right hip were obtained and reviewed by me today. They demonstrate good yamilet tomic alignment, with no acute fractures or dislocations identified. ASSESSMENT: Ten days status post right anterior total hip arthroplasty, doing well. PLAN: The audelia were removed today and Steri-Strips were applied. He is to continue physical the rapy and can transition to a cane as tolerated under the guidance of PT. We did discuss the aspirin dosing at length today and he now understands he should be taking one 325-mg tablet in the morning and a second 325-mg tablet in the evening for 6 weeks from the date of surgery. We will see him brooks valdez in 4 weeks for a repeat evaluation. He is to call the office in the meantime if he has any ana rns. Dictated By: OBI VERGARA for JUNG SHETTY/WALTER Conf#: [id number] DID#: [id number]
--- NOTE | 2016-10-04 19:38 | RADRPT ---
PROCEDURE: XR LEFT HIP. CLINICAL INDICATION: Postop right hip. TECHNIQUE: 3 views of the left hip were performed. COMPARISON: 09/23/2016. FINDINGS: Since prior examination, the patient has undergone a right bipolar hemiarthroplasty. The prosthesis is in good position and alignment. The bones are osteopenic. No evidence for fracture or bone bhavna tructive change. IMPRESSION: 1. Appropriate appearance to right hip replacement. 2. Osteopenia. No acute fracture is seen. 3. No hardware malfunction identified. RPTAT: XX .Sky Petersen MD, MD Date Time Electronically viewed and signed by .Sky Petersen MD, MD on 10/04/2016 19:38 .T/
== END | disposition home or self-care (01) ==
LOC: HKI 09:37
PROVIDERS: ATTEND Orthopaedic Surgery
DX: Z47.1 Aftercare following joint replacement surgery (principal); Z96.641 Presence of right artificial hip joint
CPT/HCPCS: 73502

== ENCOUNTER → 2016-11-01 | Outpatient (CLI) | payer MEDICARE, OTHER ==
--- NOTE | 2016-11-01 10:27 | RADRPT ---
PROCEDURE: XR pelvis/right hip. CLINICAL INDICATION: Hip pain TECHNIQUE: AP pelvis/lateral right hip view performed. COMPARISON: 10/04/2016 FINDINGS: There is a right total hip replacement. There is no evidence of loosening of the prosthesis. No hard mcrae failure is identified. There is mild left hip osteoarthrosis. This is associated with joint space narrowing, subchondral sc lerosis and osteophytosis. There is normal osseous mineralization. No fractures or osseous lesions are identified. The soft tissues are unremarkable. IMPRESSION: Right total hip replacement. Mild left hip osteoarthrosis. RPTAT: HGDB .Juliocesar Armenta MD, MD Date Time Electronically viewed and signed by .Juliocesar Armenta MD, on 11/01/2016 10:27 .B/
== END | disposition home or self-care (01) ==
LOC: HKI 09:05
PROVIDERS: ATTEND Orthopaedic Surgery
DX: Z47.1 Aftercare following joint replacement surgery (principal); M16.11 Unilateral primary osteoarthritis, right hip; Z96.641 Presence of right artificial hip joint
CPT/HCPCS: 73502